=== PATIENT | female | born 1940 | race Caucasian/White ===

== ENCOUNTER 2017-04-01 12:15 | Emergency (ER) | payer MEDICARE, BC ==
[~2017-04-01] VITALS: Ht 165.1 cm; Wt 86.4 kg
[2017-04-01] MEDS ORDERED: SPIR25TA2 PO (12:25)
[2017-04-01] MEDS ORDERED: AMLO5TAB2 PO (12:25)
[2017-04-01] MEDS ORDERED: PANT40TA2 PO (12:25)
[2017-04-01] MEDS ORDERED: LISI10TA4 PO (12:25)
[2017-04-01] MEDS ORDERED: METO1TAB32 PO (12:25)
[2017-04-01] MEDS ORDERED: ONDANSETRON 4MG/2ML VIAL (J2405) IV ONE (13:15)
[2017-04-01] MEDS ORDERED: PANTOPRAZOLE 40MG INJ (PROTONIX) (C9113) IV ONE (13:15)
[2017-04-01] MEDS ORDERED: NS 1,000 ML IV ONE (13:15)
[2017-04-01 13:31] LABS: BASO # 0.1 10^3/uL (0.0-0.2); BASO % 0.4 % (0.0-1.0); EOS % 0.1 % (0.0-3.0); IMMATURE GRANULOCYTE % 0.3 % (0-0); MEAN CORPUSCULAR HEMOGLOBIN 30.2 pg (27.0-33.0); MEAN CORPUSCULAR HGB CONC 34.4 g/dl (32.0-36.5); MEAN CORPUSCULAR VOLUME 87.7 fl (80.0-96.0); MONO # 0.8 10^3/uL (0.0-0.8); MONO % 6.5 % (0.0-5.0); NEUTROPHILS # 10.4 10^3/uL (1.8-7.7); NEUTROPHILS % 84.7 % (36.0-66.0); PLATELET COUNT, AUTOMATED 378 10^3/uL (150-450); RED CELL DISTRIBUTION WIDTH 12.2 % (11.5-14.5); WHITE BLOOD COUNT 12.3 10^3/uL (4.0-10.0)
[2017-04-01 13:35] LABS: INR 0.94
[2017-04-01 13:36] LABS: ALBUMIN 4.3 GM/DL (3.2-5.2); ALBUMIN/GLOBULIN RATIO 1.26 (1.00-1.93); ALKALINE PHOSPHATASE 86 U/L (45-117); ALT/SGPT 16 U/L (12-78); ANION GAP 11 MEQ/L (8-16); AST/SGOT 19 U/L (15-37); BILIRUBIN,DIRECT 0.1 MG/DL (0.0-0.2); BILIRUBIN,TOTAL 0.5 MG/DL (0.2-1.0); BLOOD UREA NITROGEN 20 MG/DL (7-18); CALCIUM LEVEL 9.7 MG/DL (8.8-10.2); CARBON DIOXIDE LEVEL 25 MEQ/L (21-32); CHLORIDE LEVEL 103 MEQ/L (98-107); CREATININE FOR GFR 0.89 MG/DL (0.55-1.02); GLOMERULAR FILTRATION RATE > 60.0 (>39); GLUCOSE, FASTING 106 MG/DL (83-110); POTASSIUM SERUM 3.9 MEQ/L (3.5-5.1); SODIUM LEVEL 139 MEQ/L (136-145); TOTAL PROTEIN 7.7 GM/DL (6.4-8.2)
[2017-04-01] MEDS ORDERED: GASTROGRAFIN SOLUTION 30ML PO ONE (13:45)
[2017-04-01] MEDS ORDERED: GASTROGRAFIN SOLUTION 30ML (Q9963) PO ONE (14:15)
[2017-04-01] MEDS ORDERED: ISOVUE-370 76% 100ML VIAL (Q9967) As Ordered ONE (15:07)
[2017-04-01] MEDS ORDERED: METOPROLOL SUCC (TopROL XL) 50MG **XL** TAB PO ONE (15:15)
[2017-04-01] MEDS ORDERED: PREP1SUP PR (17:12)
[2017-04-01] MEDS ORDERED: ZOFR4TAB3 PO (17:12)
[2017-04-01 18:10] VITALS: BP 150/70
--- NOTE | 2017-04-02 05:43 | REP ---
CT abdomen and pelvis with IV and oral contrast: History: GI bleeding. CT contrast dose: 100 ml of intravenous Isovue [address] findings: Preliminary digital athletic scout radiograph is unremarkable. The lung bases show plate-like atelectasis versus fibrosis in the right lower lobe. No pleural or pericardial effusion is seen. The liver and the spleen are normal in size, homogeneous in texture with one or two granulomatous calcifications noted in the spleen. No adrenal lesion is seen. The gallbladder is unremarkable. No pancreatic abnormality is observed. There are two small cortical cysts in the upper pole of the left kidney. Extrarenal pelvis configuration is seen bilaterally with mild left-sided hydronephrosis apparently due to mild ureteropelvic junction obstruction. There is no evidence of urinary tract calculus. The uterus is surgically absent. Urinary bladder is unremarkable. Normal appendix is seen in the right lower quadrant. There is moderate to marked mural thickening affecting the descending colon from the splenic flexure to the sigmoid segment consistent with acute enterocolitis. No diverticular disease is seen. There is some pericolonic fat streaking however again consistent with acute inflammation. No obstructive lesion is seen. No small bowel abnormality is observed. No adenopathy is seen. No abdominal wall defect or bony destructive lesion seen. Impression: Moderate wall thickening of the left colon from the splenic flexure to the sigmoid segment consistent with acute colitis. Mild UPJ obstruction suspected left kidney with mild hydronephrosis; no calculus disease seen. Normal appendix. Signed by Thai Ibrahim MD 04/02/2017 08:42 A
== END 2017-04-01 17:53 | disposition home or self-care (01) ==
LOC: M ED 12:15
DX: K52.9 Noninfective gastroenteritis and colitis, unspecified (principal); K64.9 Unspecified hemorrhoids; I10 Essential (primary) hypertension; J44.9 Chronic obstructive pulmonary disease, unspecified; Z79.899 Other long term (current) drug therapy; Z88.0 Allergy status to penicillin; Z88.8 Allergy status to other drugs, medicaments and biological substances; Z87.891 Personal history of nicotine dependence
CPT/HCPCS: 74177; 80048; 80076; 81001; 83690; 85025; 85610; 96374; 96375; 99284; C9113; J2405; Q9963; Q9967